=== PATIENT | female | born 2005 | race Asian ===

== ENCOUNTER 2024-09-14 10:08 | Emergency (ER) | payer OTHER, SELFPAY ==
--- NOTE | ~2024-09-14 | XR_ITS ---
EXAMINATION: XR HAND/WRIST, RIGHT CLINICAL INFORMATION: seizure, right 2/3 digit pain COMPARISON: None available. TECHNIQUE: PA, lateral, and oblique views of the right hand and wrist. FINDINGS: The bones and soft tissues are normal. No fracture. Alignment is anatomic. Joint spaces are maintained. No erosions or soft tissue calcifications. XR/XR hand wrist RT IMPRESSION: Unremarkable radiographs of the hand and wrist. Electronically signed by: Steve Delgadillo MD 09/14/2024 12:37 PM [facility]
--- NOTE | ~2024-09-14 | CT_ITS ---
EXAMINATION: CT HEAD WITHOUT CONTRAST CLINICAL INFORMATION: New onset seizure COMPARISON: None available. TECHNIQUE: Contiguous axial imaging was performed from the skull base to vertex without intravenous administration of contrast. This CT examination was performed using dose optimization techniques as appropriate, variously including the following: *Automated exposure control *Adjustment of mA and/or kV according to patient size (this includes techniques or standardized protocols for targeted exams where dose is matched to indication/reason for exam; i.e. extremities or head) *Use of iterative reconstruction technique DLP: 772.00 mGy-cm FINDINGS: The ventricles and sulci are normal in size and configuration. No acute hemorrhage, mass effect or shift is evident. Saldaña-white differentiation is maintained. In the posterior fossa, the brainstem, cerebellum and fourth ventricle image normally. The orbits and calvarium are intact. The paranasal sinuses and mastoid air cells are well pneumatized and clear. CT/CT head/brain wo IV con IMPRESSION: 1. Unremarkable noncontrast brain CT. No acute hemorrhage, mass effect or shift. Electronically signed by: Steve Delgadillo MD 09/14/2024 01:18 PM [facility]
--- NOTE | ~2024-09-14 | XR_ITS ---
EXAMINATION: XR CHEST 2 VIEW CLINICAL INFORMATION: Cough COMPARISON: None TECHNIQUE: PA and lateral views of the chest obtained. FINDINGS: The lungs are clear. There are no pleural effusions. The cardiomediastinal silhouette is normal. XR/XR chest 2V IMPRESSION: No acute cardiopulmonary disease. Electronically signed by: Steve Delgadillo MD 09/14/2024 10:56 AM [facility]
[2024-09-14 10:18] VITALS: BP 107/58; PULSE 111; RESP 20; TEMP 37.1; O2SAT 98; BMI 48.1
[2024-09-14 10:35] LABS: MANUAL DIFF FLAG NO
[2024-09-14 10:37] LABS: Basophils Absolute Auto 0.1 X10*3/uL (0.0-0.2); Basophils Percent Auto 0.6 % (0-2); Eosinophils Absolute Auto 0.5 X10*3/uL (0.0-0.4); Eosinophils Percent Auto 3.9 % (0-4); Hematocrit 39.1 % (37.0-47.0); Hemoglobin 12.9 g/dl (12.0-16.0); Imm Gran Abs Auto 0.04 X10*3/uL (0.00-0.03); Imm Gran Pct Auto 0.3 % (0.0-0.4); Lymphocytes Absolute Auto 3.1 X10*3/uL (1.2-4.9); Lymphocytes Percent Auto 24.8 % (20-40); Mean Corpuscular Hemoglobin 27.8 pg (27.0-33.0); Mean Corpuscular Volume 84.3 fL (80.0-98.0); Monocytes Absolute Auto 0.9 X10*3/uL (0.1-1.2); Monocytes Percent Auto 7.2 % (2-11); Neutrophils Absolute Auto 7.8 x10*3/uL (2.0-8.3); Neutrophils Percent Auto 63.2 % (45-73); Platelet Count 339 X10*3/uL (160-400); Red Blood Count 4.64 X10*6/uL (4.20-5.50); Red Cell Distribution Width 13.2 % (11.0-16.0); White Blood Count 12.3 X10*3/uL (4.8-10.8)
[2024-09-14 11:14] LABS: Influenza A PCR NEGATIVE (Negative); Influenza B PCR NEGATIVE (Negative); Resp Syncy Virus RNA Qual PCR NEGATIVE (Negative); SARS COV2 PCR INHOUSE NEGATIVE (Negative)
--- NOTE | 2024-09-14 11:25 | ED_ITS ---
HPI - Seizure General Chief Complaint: Seizure Stated Complaint: SEIZURE,-SEIZURE HX,FALL,POSTICTAL PER EMS Time Seen by Provider: 09/14/24 11:19 Source: patient and EMS Mode of arrival: EMS Limitations: no limitations History of Present Illness ED Provider: TYESHA GARCIA PA-C HPI Narrative: 18 year old female with no significant pmhx presents to the ED today via EMS from [facility] for evaluation of seizure-like activity. Patient reports pulling an all nighter last night in order to study for her upcoming exams. Admits to a significant amount of stress regarding school work recently. She reports taking a small nap early this morning and woke up on the floor with other students surrounding her. She reports feeling confused however recalls EMS arriving on scene. She also reports being incontinent of urine. Her roommate reported to EMS that patient exhibited seizure like activity (body shaking) however is unsure how long this lasted. Unknown head strike. Not on anticoagulation. Patient does not recall any preceding symptoms of headache, dizziness, chest pain, palpitations. At present, patient reports mild headache at present along with right hand pain, primarily to right index and middle finger. She also reports developing a sore throat since she arrived in the ED. Denies seizure history. The only medication she currently takes is an OCP. Denies etoh consumption/etoh withdrawals. Denies any illicit substance use. Related Data Previous Rx's ?Medication ?Instructions ?Recorded levetiracetam 500 mg tablet 500 mg PO BID 30 days #60 tabs 09/14/24 (Karrie) Allergies Allergy/AdvReac Type Severity Reaction Status Date / Time No Known Allergies Allergy Verified 09/14/24 10:22 Review of Systems 2 Review of Systems: Constitutional: No fever, chills, fatigue, night sweats, weight changes ENT/Mouth: No ear pain, hearing loss, nasal congestion, sinus pain, rhinorrhea, +sore throat Eyes: No eye pain, swelling, redness, vision changes, discharge Cardio: No chest pain, palpitations, [place], orthopnea, peripheral edema Pulm: No SOB, cough, sputum, wheezing, dyspnea, hemoptysis GI: No nausea, vomiting, hematemesis, abdominal pain, diarrhea, constipation, hematochezia, melena : No irregular bleeding, dysuria, frequency, urgency, hesitancy, hematuria, flank pain, urinary flow changes, urinary incontinence or retention MSK: No back pain, neck pain, joint pain, myalgias, +right hand pain Skin: No lesions, rashes Neuro: No weakness, numbness, paresthesias, LOC, dizziness, +headache Psych: No anxiety/panic, depression, SI/HI, AH/VH All other systems reviewed and are negative. [facility] Past Medical History Attestation statement: The following information was validated with the patient. Source: old records reviewed and nursing notes reviewed Medical History No known health problems Social History Social History Smoked in Last 30 Days: No Use of substances other than those prescribed or required for medical reasons: No Advance Directives: No Advance Directives Information Provided: Yes Physical Exam 2 Vital Signs: Vital Signs: Last Vital Signs Temp 98.7 F 09/14/24 10:18 Pulse 111 H 09/14/24 10:18 Resp 20 09/14/24 10:18 BP 107/58 L 09/14/24 10:18 Pulse Ox 98 09/14/24 10:18 O2 Del Method Room Air 09/14/24 10:18 BMI result Body Mass Index 48.1 Patient is tachycardic to 111, hypotensive to 107/58 General: Well appearing, in no acute distress. Skin: Warm, dry, intact. No rashes or lesions. Head: Normocephalic, atraumatic. no palpable skull fracture or hematoma. EENT: Hearing is intact b/l. Conjunctiva clear. PERRLA. EOM intact w/o entrapment. Moist mucous membranes.?+superficial laceration to right tongue, no active bleeding Neck: No midline cervical spinous tenderness or step off deformity Cardiac: Chest wall symmetric. RRR Lungs: Normal respiratory effort without accessory muscle use. CTA bilaterally. Abdomen: Soft, non-tender, non-distended. No rebound tenderness or guarding. Positive BS x4. Back: No midline spinous or paraspinal tenderness. No step off deformity. Ext: +small abrasion noted to MCP of right 2nd and 3rd digits. No active bleeding. Limited ROM w/ flexion of these digits. NV intact distally. no calf tenderness Neuro: AOx3. Normal speech. Ambulating with steady gait. Psych: Appropriate mood and affect. Responds appropriately to questions. Course Course Course Narrative: CBC showing leukocytosis to 12.3 without left shift. This is likely reactive secondary to seizure. No anemia. H&H stable. D-dimer <150 - low suspicion for PE. CTA chest not warranted at this time. chemistry without acute electrolyte abnormality requiring intervention. No NIYAH. Lactic 2 - mildly elevated secondary to seizure. No concern for sepsis. random glucose 104 - hypoglycemic episode unlikely. Total CK 114. Beta hcg <2 - unlikely. UA without infection or blood. UDS negative for all substances. She tested negative for covid, flu, rsv, and strep throat. CXR does not demonstrate pneumonia. XR right hand/ wrist does not demonstrate fracture. CT head/ brain does not demonstrate bleed or mass. > I discussed all work up results with patient. At this time patient has been observed in the ED for 4 hours without further seizure activity. She was given a loading dose of keppra IV and tolerated this well. Concern for new onset seizures - etiology unclear at this time however may be related to increased stressors/ lack of sleep. Plan to start patient on keppra 500 mg BID. Educated patient on cessation of driving for at least 6 months - she verbalizes understanding. I hand also provided her with a referral to neurologist for further work up. She plans to call them Tuesday morning. Patient has remained stable throughout ED visit today. Discussed worrisome signs and symptoms and when to return to the ED. All questions answered at this time. Patient is agreeable with disposition and stable for discharge. Her college is arranging for a ride back. Medications Administered Discontinued Medications Generic Name Dose Route Start Last Admin Trade Name Freq PRN Reason Stop Dose Admin Levetiracetam 1,000 mg in 100 mls @ 400 mls/hr 09/14/24 11:26 09/14/24 12:07 Keppra IV 09/14/24 11:40 Infused ONCE ONE Infusion Medical Decision Making Medical Decision Making [facility] Narrative: 18 year old female with no significant pmhx presents to the ED today via EMS from [facility] for evaluation of seizure-like activity. Hypotensive to 107/58, tachycardic to 111. Not hypoxic. She is nontoxic appearing and in NAD. AOX3 on my evaluation. Head is normocephalic, atraumatic. No palpable skull fracture or hematoma. Exam is nonfocal. Small laceration to right tongue without active bleeding. There is a small abrasion noted to MCP of right 2nd and 3rd digits. No active bleeding. Limited ROM w/ flexion of these digits. NV intact distally. No midline spinous tenderness or step off. Ambulating w/ steady gait. differential diagnosis includes anemia, electrolyte abnormality, dehydration, hypoglycemia, anxiety, stress, arrhythmia, seizure, seizure disorder, intracranial mass, viral syndrome, strep throat, pneumonia, urinary tract infection, finger fracture, MSK sprain/strain, pulmonary embolism. Unlikely drug induced seizure, etoh withdrawal seizure PERC 2 - d-dimer ordered to rule out PE. Plan for blood work, lactic, CPK, ekg, cxr, hand XR, UA, UDS, hcg, CT head, re- evaluation. Loading dose of keppra ordered. Will hold on ativan has patient's BP is soft. Differential Diagnosis Differential Diagnoses: The differential diagnosis associated with the presentation includes as above. Admission/Observation Consideration of admission/observation: Escalation of care including admission/observation considered Admission considered on presentation Lab Data MDM Lab Attestation statement: I reviewed the patient's lab results. as above. 09/14/24 10:31 09/14/24 11:13 Labs: Lab Results 09/14/24 09/14/24 09/14/24 Range/Units 10:27 10:31 11:13 WBC 12.3 H (4.8-10.8) X10*3/uL RBC 4.64 (4.20-5.50) X10*6/uL Hgb 12.9 (12.0-16.0) g/dl Hct 39.1 (37.0-47.0) % MCV 84.3 (80.0-98.0) fL MCH 27.8 (27.0-33.0) pg MCHC 33.0 (31.0-35.0) g/dl RDW 13.2 (11.0-16.0) % Plt Count 339 (160-400) X10*3/uL MPV 9.0 L (9.4-12.3) fL Immature Gran % (Auto) 0.3 (0.0-0.4) % Neut % (Auto) 63.2 (45-73) % Lymph % (Auto) 24.8 (20-40) % [place] % (Auto) 7.2 (2-11) % Eos % (Auto) 3.9 (0-4) % Baso % (Auto) 0.6 (0-2) % Lymph # (Auto) 3.1 (1.2-4.9) X10*3/uL [place] # (Auto) 0.9 (0.1-1.2) X10*3/uL Eos # (Auto) 0.5 H (0.0-0.4) X10*3/uL Baso # (Auto) 0.1 (0.0-0.2) X10*3/uL Abs Immat Gran (auto) 0.04 H (0.00-0.03) X10*3/uL Absolute Neuts (auto) 7.8 (2.0-8.3) x10*3/uL Absolute Nucleated RBC 0.000 (0.0-0.012) X10*3/uL Nucleated RBC % (auto) 0.0 (0.0-0.2) /100WBC D-Dimer High Sensitivty NG/ML Sodium 138 (135-145) mmol/L Potassium 3.5 (3.3-5.1) mmol/L Chloride 107 (96-108) mmol/L Carbon Dioxide 24 (22-29) mmol/L Anion Gap 11 L (12-20) BUN 9 (9-16) mg/dL Creatinine 0.61 (0.5-1.4) mg/dL Estim Creat Clear Calc 195.8 Estimated GFR > 60 Random Glucose 104 (60-115) mg/dL Lactic Acid (0.5-2.0) mmol/L Calcium 9.0 (8.4-10.2) mg/dL Total Creatine Kinase 114 (26-140) U/L Beta HCG, Quant < 2 mIU/mL Urine Color Urine Appearance Urine pH (5.0-9.0) Ur Specific [place] (1.005-1.025) Urine Protein (Neg-Trace) mg/dL Urine Glucose (UA) (Negative) mg/dL Urine Ketones (Negative) mg/dL Urine Blood (Negative) Urine Nitrite (Negative) Ur Leukocyte Esterase (Negative) Urine Opiates Screen (Not Detect) Ur Buprenorphine Scrn (Not Detect) ng/mL Ur Oxycodone Screen (Not Detect) ng/mL Urine Methadone Screen (Not Detect) ng/mL Urine Fentanyl Screen (Not Detect) Ur Barbiturates Screen (Not Detect) Ur Phencyclidine Scrn (Not Detect) Ur Amphetamines Screen (Not Detect) U Benzodiazepines Scrn (Not Detect) Urine Cocaine Screen (Not Detect) U Marijuana (THC) Screen (Not Detect) Influenza Type A (PCR) NEGATIVE (Negative) Influenza Type B (PCR) NEGATIVE (Negative) RSV RNA Qual (PCR) NEGATIVE (Negative) SARS-CoV-2 RNA (RT-PCR) NEGATIVE (Negative) S. pyogenes GrpA PHONG (Negative) 09/14/24 09/14/24 09/14/24 Range/Units 11:27 11:57 11:58 WBC (4.8-10.8) X10*3/uL RBC (4.20-5.50) X10*6/uL Hgb (12.0-16.0) g/dl Hct (37.0-47.0) % MCV (80.0-98.0) fL MCH (27.0-33.0) pg MCHC (31.0-35.0) g/dl RDW (11.0-16.0) % Plt Count (160-400) X10*3/uL MPV (9.4-12.3) fL Immature Gran % (Auto) (0.0-0.4) % Neut % (Auto) (45-73) % Lymph % (Auto) (20-40) % [place] % (Auto) (2-11) % Eos % (Auto) (0-4) % Baso % (Auto) (0-2) % Lymph # (Auto) (1.2-4.9) X10*3/uL [place] # (Auto) (0.1-1.2) X10*3/uL Eos # (Auto) (0.0-0.4) X10*3/uL Baso # (Auto) (0.0-0.2) X10*3/uL Abs Immat Gran (auto) (0.00-0.03) X10*3/uL Absolute Neuts (auto) (2.0-8.3) x10*3/uL Absolute Nucleated RBC (0.0-0.012) X10*3/uL Nucleated RBC % (auto) (0.0-0.2) /100WBC D-Dimer High Sensitivty < 150 NG/ML Sodium (135-145) mmol/L Potassium (3.3-5.1) mmol/L Chloride (96-108) mmol/L Carbon Dioxide (22-29) mmol/L Anion Gap (12-20) BUN (9-16) mg/dL Creatinine (0.5-1.4) mg/dL Estim Creat Clear Calc Estimated GFR Random Glucose (60-115) mg/dL Lactic Acid 2.0 (0.5-2.0) mmol/L Calcium (8.4-10.2) mg/dL Total Creatine Kinase (26-140) U/L Beta HCG, Quant mIU/mL Urine Color Yellow Urine Appearance Clear Urine pH 5.5 (5.0-9.0) Ur Specific [place] 1.015 (1.005-1.025) Urine Protein Trace (Neg-Trace) mg/dL Urine Glucose (UA) Negative (Negative) mg/dL Urine Ketones Negative (Negative) mg/dL Urine Blood Negative (Negative) Urine Nitrite Negative (Negative) Ur Leukocyte Esterase Negative (Negative) Urine Opiates Screen Not Detected (Not Detect) Ur Buprenorphine Scrn Not Detected (Not Detect) ng/mL Ur Oxycodone Screen Not Detected (Not Detect) ng/mL Urine Methadone Screen Not Detected (Not Detect) ng/mL Urine Fentanyl Screen Not Detected (Not Detect) Ur Barbiturates Screen Not Detected (Not Detect) Ur Phencyclidine Scrn Not Detected (Not Detect) Ur Amphetamines Screen Not Detected (Not Detect) U Benzodiazepines Scrn Not Detected (Not Detect) Urine Cocaine Screen Not Detected (Not Detect) U Marijuana (THC) Screen Not Detected (Not Detect) Influenza Type A (PCR) (Negative) Influenza Type B (PCR) (Negative) RSV RNA Qual (PCR) (Negative) SARS-CoV-2 RNA (RT-PCR) (Negative) S. pyogenes GrpA PHONG Negative (Negative) Independent Interpretation I performed an independent interpretation of an: EKG, Plain X-Ray and CT Scan Interpretation: CXR without focal consolidation or infiltrate X-ray right hand without fracture EKG showing normal sinus rhythm with a rate of 95 beats per minute, QT 364, QTC 457, no acute ischemic changes or ST elevations CT head/ brain without bleed or mass Radiology Impression Discussion of test interpretation with radiology: I have reviewed the radiologist's reading. Radiologist Impression: EXAMINATION: XR CHEST 2 VIEW CLINICAL INFORMATION: Cough COMPARISON: None TECHNIQUE: PA and lateral views of the chest obtained. FINDINGS: The lungs are clear. There are no pleural effusions. The cardiomediastinal silhouette is normal. XR/XR chest 2V IMPRESSION: No acute cardiopulmonary disease. Electronically signed by: Steve Delgadillo MD 09/14/2024 10:56 AM EST RP EXAMINATION: CT HEAD WITHOUT CONTRAST CLINICAL INFORMATION: New onset seizure COMPARISON: None available. TECHNIQUE: Contiguous axial imaging was performed from the skull base to vertex without intravenous administration of contrast. This CT examination was performed using dose optimization techniques as appropriate, variously including the following: *Automated exposure control *Adjustment of mA and/or kV according to patient size (this includes techniques or standardized protocols for targeted exams where dose is matched to indication/reason for exam; i.e. extremities or head) *Use of iterative reconstruction technique DLP: 772.00 mGy-cm FINDINGS: The ventricles and sulci are normal in size and configuration. No acute hemorrhage, mass effect or shift is evident. Saldaña-white differentiation is maintained. In the posterior fossa, the brainstem, cerebellum and fourth ventricle image normally. The orbits and calvarium are intact. The paranasal sinuses and mastoid air cells are well pneumatized and clear. CT/CT head/brain wo IV con IMPRESSION: 1. Unremarkable noncontrast brain CT. No acute hemorrhage, mass effect or shift. Electronically signed by: Steve Delgadillo MD 09/14/2024 01:18 PM EST RP EXAMINATION: XR HAND/WRIST, RIGHT CLINICAL INFORMATION: seizure, right 2/3 digit pain COMPARISON: None available. TECHNIQUE: PA, lateral, and oblique views of the right hand and wrist. FINDINGS: The bones and soft tissues are normal. No fracture. Alignment is anatomic. Joint spaces are maintained. No erosions or soft tissue calcifications. XR/XR hand wrist RT IMPRESSION: Unremarkable radiographs of the hand and wrist. Electronically signed by: Steve Delgadillo MD 09/14/2024 12:37 PM [facility] Independent Historian Clinical information obtained from an independent historian. History obtained from or confirmed by: EMS External Record Review External record reviewed: Inpatient record Prescription Management I considered prescription management with: Other (keppra) Social Determinants Patient?s care significantly limited by Social Determinants of Health including: Other Social Determinant of Health Critical Care Time Critical Care Time Critical Care Time: Yes Total Critical Care Time: 32 Attestation: Critical care time in the amount of 32 minutes has been provided to the patient in terms of direct patient care, frequent reevaluation, review and interpretation of medical data and results, and management of potentially life- threatening conditions. This is all outside of any medical procedures. Discharge Plan Discharge Clinical Impression: New onset seizure Patient Disposition: Home, Self-Care Instructions: New-Onset Seizure in Adults (ED) Additional Instructions: You were evaluated in the ED today following seizure like activity. Your workup today is consistent with new onset seizures. Your blood work is otherwise reassuring. The EKG of your heart is normal. Your urine does not show infection. The xrays of your chest and right hand are normal. The CT scan of your head does not show bleed or mass. It is unclear at this time what caused due to have a seizure this morning. As discussed, it may be related to the recent stress that you have been under regarding school. I am starting your on an anti-seizure medication (Keppra) which you will take as prescribed twice daily. You received this medication in ED today so please take your next dose tomorrow. You need to follow up with a neurologist for further work up into why you may have experienced a seizure. You have been provided with a referral. Call them on Tuesday to make an appointment. They will not call you. They will also be able to refill your prescription and monitor your medication levels. As discussed, please to not drive a vehicle or operate machinery for at least 6 months. This will prevent you from having a seizure while driving/ harming yourself and/or others. Please return with any new or worsening symptoms. In the case of an emergency call 911. Prescriptions: New levetiracetam [Keppra] 500 mg tablet 500 mg PO BID 30 Days Qty: 60 0RF Referrals: [facility] Group] - 3 days (New onset seizure - started on keppra daily) Print Language: Bulgarian
[2024-09-14 11:32] LABS: Anion Gap 11 (12-20); Blood Urea Nitrogen 9 mg/dL (9-16); Carbon Dioxide 24 mmol/L (22-29); Chloride 107 mmol/L (96-108); Creatinine Clr Calc Pharmacy 195.8; Estimated Glomerular Filt Rate > 60; Glucose Random 104 mg/dL (60-115); Potassium 3.5 mmol/L (3.3-5.1); Sodium 138 mmol/L (135-145)
[2024-09-14 11:37] LABS: Appearance Urine Clear; Color Urine Yellow; Glucose Urine UA Negative (Negative); Leukocyte Esterase Urine Negative (Negative); Nitrite Urine Negative (Negative); PH 5.5 (5.0-9.0); Specific Gravity - Urine 1.015 (1.005-1.025); Urine Blood Negative (Negative); Urine Ketones Negative (Negative); Urine Protein Trace mg/dL (Neg-Trace)
[2024-09-14] MEDS: levETIRAcetam in NaCl (iso-os) 1,000 MG/100 ML PIGGYBACK 400 MG IV (11:38)
--- NOTE | 2024-09-14 11:42 | ECG_ITS ---
Test Reason : seizure Blood Pressure : / mmHG Vent. Rate : 095 BPM Atrial Rate : 095 BPM P-R Int : 152 ms QRS Dur : 090 ms QT Int : 364 ms P-R-T Axes : 046 063 030 degrees QTc Int : 457 ms Normal sinus rhythm Normal ECG No previous ECGs available Referred By: Tasia Tang Electronically Signed By:Timbo Sanchez
[2024-09-14 11:45] LABS: Amphetamine Screen Urine Not Detected (Not Detect); Barbiturates, Urine Not Detected (Not Detect); Benzodiazepines Screen Urine Not Detected (Not Detect); Buprenorphine Scr Not Detected (Not Detect); Cannabinoid Screen Urine Not Detected (Not Detect); Cocaine Screen Urine Not Detected (Not Detect); Fentanyl, urine Not Detected (Not Detect); Methadone Screen, Urine Not Detected (Not Detect); Opiate Screen Urine Not Detected (Not Detect); Oxycodone Screen Urine Not Detected (Not Detect); Phencyclidine Screen Urine Not Detected (Not Detect)
[2024-09-14 12:00] LABS: HCG Quantitative < 2 mIU/mL
[2024-09-14 12:15] LABS: IDNOW Serial# 08D9AD1C; Strep A Nucleic Acid Negative (Negative)
[2024-09-14 12:28] LABS: D Dimer High Sensitivity < 150 NG/ML
[2024-09-14 13:52] VITALS: BP 120/68; PULSE 101; RESP 20; TEMP 37; O2SAT 97
--- NOTE | 2024-09-14 14:08 | PC.NURSE ---
This rn called [facility]. campus safety to call cab, patient out to waiting room with blanket and socks from hospital
[2024-09-14 14:10] VITALS: BP 120/68; PULSE 101; RESP 20; TEMP 37; O2SAT 97
== END 2024-09-14 14:10 | disposition home or self-care (01) ==
PROVIDERS: Physician Assistant Medical; Emergency Provider Emergency Medicine Emergency Medical Services
DX: G40.909 Epilepsy, unspecified, not intractable, without status epilepticus (principal); M79.641 Pain in right hand; R51.9 Headache, unspecified; J02.9 Acute pharyngitis, unspecified; Z03.818 Encounter for observation for suspected exposure to other biological agents ruled out
CPT/HCPCS: 0241U; 36415; 70450; 71046; 73110; 73130; 80048; 80307; 81003; 82550; 83605; 84702; 85025; 85379; 87651; 93005; 96365; 99284; J1953

== ENCOUNTER → 2024-09-14 11:42 | Outpatient (BNV) | payer OTHER, SELFPAY | PROVIDERS: Emergency Provider Emergency Medicine Emergency Medical Services; Visit Provider Internal Medicine Cardiovascular Disease | DX: R56.9 Unspecified convulsions (principal) | CPT/HCPCS: 93010 ==

== ENCOUNTER 2025-02-11 08:24 | Outpatient (AMB) | payer OTHER, SELFPAY ==
--- NOTE | 2025-02-11 08:27 | A.OFFVIS_ITS ---
Vital Signs 02/11/25 08:29 Height 5 ft 4 in BP 112/72 Blood Pressure Location Rt brachial Position Sitting Pulse 98 Pulse Source Pulse Oximeter Pulse Oximetry (%) 99 Oxygen Delivery Method Room Air Intake Visit Reasons: [id number]-HU-Xyznpir hx/Fall/Posticatal per EMS-LVM Intake Note: patient referred by ER dept. for ? seizure. patient has no PMHx. Allergies No Known Allergies Allergy (Verified 09/14/24 10:22) HPI Comments Details: 19 year old female with no significant pmhx comes for evaluation of seizure like activity.she denies seizure like activity since Sep 14 2024. On Sep 14 2024 she was brought to ED via EMS from [facility] for evaluation of seizure-like activity. Patient reports pulling an all nighter last night in order to study for her upcoming exams. Admits to a significant amount of stress regarding school work recently. She reports taking a small nap early this morning and woke up on the floor with other students surrounding her. She reports feeling confused however recalls EMS arriving on scene. She also reports being incontinent of urine. Her roommate reported to EMS that patient exhibited seizure like activity (body shaking) however is unsure how long this lasted. Unknown head strike. Not on anticoagulation. Patient does not recall any preceding symptoms of headache, dizziness, chest pain, palpitations. At present, patient reports mild headache at present along with right hand pain, primarily to right index and middle finger. She also reports developing a sore throat since she arrived in the ED. Denies seizure history. The only medication she currently takes is an OCP. Denies etoh consumption/etoh withdrawals. Denies any illicit substance use. she was given levetiracetam 500mg bid for 1 month . currently she takes only OCPs. she denies any snoring , has some fatigue . [facility] Medical History (Updated 02/11/25 @ 08:47 by Jael Mathis MD) Excessive daytime sleepiness Obesity (BMI 35.0-39.9 without comorbidity) Loss of consciousness No known health problems Family History Mother HTN (hypertension) Social History Alcohol intake: never Patient Tobacco Use Status: Never used Tobacco Use of substances other than those prescribed or required for medical reasons: No Physical Exam Vital Signs: Last Vital Signs Pulse 98 02/11/25 08:29 BP 112/72 02/11/25 08:29 Pulse Ox 99 02/11/25 08:29 Oxygen Delivery Method Room Air 02/11/25 08:29 Const General: cooperative and comfortable Nutritional Appearance: obese morbidly obese Orientation/consciousness: patient oriented x3 Eyes Pupils: Equal, round and reactive pupils present Neck Neck: Yes no meningeal signs Neuro Other: mallampatti grade 4 acanthosis nigricans General: patient oriented x3, gait normal, tone normal, moves all extremities and no meningeal signs Cranial nerves: Yes CN's II-XII intact bilaterally, Yes Facial sensation intact/muscles of mastication intact, Yes Equal, round and reactive pupils pres ent, Yes Bilaterally intact EOM present, Yes Nystagmus not present, Yes Normal facial strength present and Yes Symmetric palate elevation present Cognition (Neuro): normal cognition Gait exam (Neuro): Normal gait present Motor exam (neuro): 5/5 motor strength present throughout and Normal motor muscle tone present throughout Deep tendon reflexes (DTR's): Right triceps reflex intensity grade: 2+, Left triceps reflex intensity grade: 2+, Rt Biceps (C5, C6): 2+, Left biceps reflex intensity grade: 2+, Right brachioradialis reflex intensity grade: 2+, Left brachioradialis reflex intensity grade: 2+, Right patellar reflex intensity grade: 2+ and Left patellar reflex intensity grade: 2+ Coordination: [id number] test normal Assessment & Plan Assessment & Plan (1) Loss of consciousness: Comment: ? seizure, ? sleep deprivation. ? cardiac causes Code(s): R40.20 - Unspecified coma Category: Medical (2) Obesity (BMI 35.0-39.9 without comorbidity): Code(s): E66.9 - Obesity, unspecified Category: Medical (3) Excessive daytime sleepiness: Code(s): G47.19 - Other hypersomnia Category: Medical Plan I will evaluate her with EEG The ER notes were reviewed Home sleep test to r/o sleep apnea. Orders: Orders EEG electroencephalogram Today E66.9 - Obesity, unspecified, G47.19 - Other hypersomnia, R40.20 - Unspecified coma RT home sleep study Today E66.9 - Obesity, unspecified, G47.19 - Other hypersomnia Medications: Discontinued levetiracetam (Keppra) Discontinued Reason: Patient no longer taking 500 mg PO BID 30 days 60 tabs 0RF Coding Level of Care Code New Pt Level 4 (01737) Diagnoses Loss of consciousness R40.20 Obesity (BMI 35.0-39.9 without comorbidity) E66.9 Excessive daytime sleepiness G47.19
[2025-02-11 08:29] VITALS: BP 112/72; PULSE 98; O2SAT 99
--- OUTSIDE RECORDS SUMMARY | 2025-02-11 08:46 | XMS_ITS | Encounter Summary ---
Author Organization [facility] Address [address] [place], [place] [id number] Phone Care Team Providers Care Atomic Physics Teacher Name Role Phone Lexie Alexander MD Primary Care Provider [phone] Encounter Details Date Type Department Care Team (Late st Contact Info) Description 05/18/2017 Conversion Encounter [facility] [address] [place] [id number] Lexie Alexander MD [address] [place] [phone] Social History Tobacco Use Types Packs/Day Years Used Date Smoking Tobacco: Never Assessed Comments Unknown Sex and Gender Information Value Date Recorded Sex Assigned at Female 11/03/2021 11:28 AM EST Legal Sex Female 9:46 AM EST Gender Identity Female 11/03/2021 11:28 AM EST Sexual Orientation Choose not to disclose 2021 11:28 AM EST documented as of this encounter Plan of Treatment Not on file documented as of this encounter Visit Diagnoses Not on filedocumented in this encounter Care Teams Atomic Physics Teacher Relationship Specialty Start Date End Date Lexie Alexander MD [address] [place] [phone] PCP - General 11/30/16 documented as of this encounter
--- OUTSIDE RECORDS SUMMARY | 2025-02-11 08:46 | XMS_ITS | Clinical Summary ---
Author Organization [facility] Address [address] [place] [id number] Phone Care Team Providers Care Economics Consultant Name Role Phone Lexie Alexander MD Primary Care Provider [phone] Allergies No known active allergies Medications 1.5-30 MG-MCG tablet 06/25/2019 Active Active Problems Problem Noted Date Diagnosed Date Acute midline low back pain 04/16/2024 Assessment & Plan (04/16/2024 12:17 PM EDT): Has resolved. Recommend call if recurs/persists for ortho referral, rule out slipped disc Polycystic ovarian syndrome 08/07/2019 Assessment & Plan (04/16/2024 12:03 PM EDT): Taking OCP. Declines follow up with SPECTRAL SCIENTIST Assessment & Plan (12/09/2022 11:56 AM EST): Follow up with SPECTRAL SCIENTIST Assessment & Plan (11/03/2021 11:41 AM EST): Follow up with Dr Gutiérrez Assessment & Plan (10/20/2020 4:12 PM EST): Follow up with Dr Gutiérrez as directed Cyst of left ovary 03/15/2019 Overview (12/11/2019): Seen on u/s ordered by endocrine, referral given to complaint manager(Dr Gutiérrez). 08/28 repeat u/s, enlarged left ovary and complex paraovarian cyst. 12/27 follow up u/s showed stable left adnexal cyst vs hydrosalpinx. Bilateral follicles, ?PCOS. To f/u with Dr Gutiérrez Assessment & Plan (04/16/2024 12:00 PM EDT): Jeanine declines follow up with SPECTRAL SCIENTIST Assessment & Plan (12/09/2022 11:55 AM EST): Advised follow up with SPECTRAL SCIENTIST, continue OCP Assessment & Plan (11/03/2021 11:39 AM EST): Followed by SPECTRAL SCIENTIST, Dr Gutiérrez Assessment & Plan (10/20/2020 4:13 PM EST): Follow up with Dr Gutiérrez as directed Assessment & Plan (08/09/2019 3:47 PM EDT): Has SPECTRAL SCIENTIST appointment tomorrow Mixed hyperlipidemia 02/05/2019 Overview (02/05/2019): Followed by [facility] endocrine. 01/26 labs-High total chol(211), LDL(130) and triglyceride(231)s, low HDL(35). Low Vit D. Normal LFT and TFT's, prolactin. Free testosterone and DHEAS pending Assessment & Plan (04/16/2024 12:03 PM EDT): Declines repeat testing today. Discussed can call after 6 months of change in nutrition and exercise for fasting lipid panel order. She will think about it Assessment & Plan (12/09/2022 11:56 AM EST): Ordered fasting labs to hopefully get prior to endocrine follow up Assessment & Plan (11/03/2021 11:40 AM EST): Follow up with endocrine and nutrition Assessment & Plan (10/20/2020 4:12 PM EST): Follow up with endocrine and nutrition as directed Assessment & Plan (08/09/2019 3:48 PM EDT): Followed by endocrine. Mom didn't realize she had low Vitamin D. Wants script sent to her pharmacy Vitamin D deficiency 02/05/2019 Overview (02/05/2019): Dx'd 01/26 by endocrine. Recommended daily 2000IU Vit D Assessment & Plan (04/16/2024 12:04 PM EDT): Continue daily supplement (level last year was 14). Declines repeat testing Assessment & Plan (12/09/2022 11:56 AM EST): Will recheck with next set of labs Assessment & Plan (11/03/2021 11:41 AM EST): Continue Vit D supplement and follow up with endocrine Assessment & Plan (10/20/2020 4:11 PM EST): Continue Vit D supplement and follow up with endocrine Assessment & Plan (08/09/2019 3:48 PM EDT): Neither mom nor Jeanine knew about her Vit D deficiency. I sent a script for supplement to pharmacy Acanthosis nigricans 12/18/2015 Assessment & Plan (04/16/2024 11:58 AM EDT): Normal Hgb A1C and fasting glucose 2022 Assessment & Plan (12/09/2022 11:55 AM EST): Needs Hemoglobin A1C and fasting blood sugar rechecked Assessment & Plan (11/03/2021 11:37 AM EST): At risk for TypeIIDM, follow up with endocrine Assessment & Plan (10/20/2020 4:13 PM EST): Follow up with endocrine Myopia 09/23/2014 Assessment & Plan (04/16/2024 12:03 PM EDT): Follow up with eye doctor as directed Assessment & Plan (12/09/2022 11:56 AM EST): Follow up with eye doctor as directed Assessment & Plan (10/20/2020 4:12 PM EST): Follow up with ophtho as directed Assessment & Plan (08/09/2019 3:48 PM EDT): Follow up with ophtho as directed BMI, pediatric > 99% for age Overview (02/12/2019): 12/23-[facility] endocrine due to high fasting insulin and acanthosis nigricans. Nutrition referral, increase exercise and yearly metabolic screening, HgbA1C and glucose. 01/25-nutrition follow up, has started soccer and lost some weight. Plan to keep socially and physically active after school to avoid the eating out of boredom or sadness. 03/27 follow up note received. 06/27 follow up-referral to endocrine to rule out insulin resistance 07/27-endocrine visit obesity and insulin resistance/at risk for Type II DM, continue regular visits with nutrition. Labs normal for secondary amenorrhea, no PCOS. F/U 6 months 01/26 follow up, gaining weight, normal random glucose and HgbA1C, to have fasting labs and f/u 6 months 02/25-Labs significant for Total chol 211, LDL 130, HDL 35, Trig 231, high free testosterone(10.8) and normal DHEAS(200), normal prolactin, negative HCG. Suggests PCOS, to check u/s Assessment & Plan (04/16/2024 11:58 AM EDT): Jeanine has been making an effort to eat healthy and go to the gym regularly. Has lost 9 lbs so far Assessment & Plan (12/09/2022 11:55 AM EST): Needs follow up with endocrine. Given order for fasting labs to be done prior to appointment Assessment & Plan (11/03/2021 11:39 AM EST): Followed by endocrine and nutrition Assessment & Plan (10/20/2020 4:13 PM EST): Follow up with endocrine and nutrition as directed Assessment & Plan (08/09/2019 3:47 PM EDT): Continue follow up with endocrine Resolved Problems Problem Noted Date Diagnosed Date Resolved Date Secondary amenorrhea 07/25/2018 024 Assessment & Plan (12/09/2022 11:56 AM EST): Doing well on OCP Assessment & Plan (11/03/2021 11:41 AM EST): Diagnosed with PCOS and put on OCP Assessment & Plan (10/20/2020 4:12 PM EST): Seen by pediatric SPECTRAL SCIENTIST and diagnosed with PCOS, put on junel Immunizations Immunization Administration Dates Next Due BCG 2004 COVID-19 Pfizer, chepe-sucros e, 12+ years 10/24/2021 DTaP 10/29/2010, 6,02/19/2005,01/11,2004 HPV Vaccine 9 Valent 08/09/2019,12/08/2017 Hep A, ped/adol 03/18/2011,06/03/2010 Hep B, ped/adol 04/13/2005,2004,2004 Hib (HbOC) 01/11/2005,2004 Influenza, injectable, quadrivalent 10/28/2016,1 ,10/15/2014 Influenza, injectable, quadr ivalent, preservative free 12/09/2022,11/03/2021,09/01/2020,08/09,12/08/2017 Influenza, injectable, trivalent 10/15/2013 MMR 06/07/2011,05/04/2010 Measles 06/25/2010,06/07/2005 Meningococcal B Bexsero 01/11/2023,12/09/2022 Meningococcal Conj (Menactra) MCV4P 10/20/2020,0 10/28/2016,05/04/2010 OPV 10/05/2008, 5,01/11/2005,12/04 Tdap 10/28/2016 Tetanus 10/15/2013 Varicella 02/14/2014,05/03/2011 Family History Medical History Relation Name Comments Diabetes Other Breast cancer Paternal Grandmother Liver cancer Paternal Grandmother Relation Name Status Comments Father Alive Mother Alive Other Paternal Grandmother breast cancer in 40's, liver cancer in 60's and Social History Tobacco Use Types Packs/Day Years Used Date Smoking Tobacco: Never Assessed Hunger/Food Answer Date Recorded In the last 12 months, did y ou or your family ever eat less than you felt you should because there wasn't enough money for food? No 04/16/2024 Stable Housing Answer Date Recorded Are you worried that in the next 2 months you may not have stable housing? No 04/16/2024 Transportation Concerns Answer Date Rec orded In the last 12 months, have you or your family ever had to go without healthcare because you didn't have a way to get there? No 04/16/2024 Hazards in Home Answer Date Recorded Think about the place you li ve. Do you have problems with any of the following? Pests (mice or roaches), mold, no/not working smoke detectors, water leaks, no window guards. No 2023 Financing Utilities Answer Date Recorde d In the last 12 months, has t he electric, gas, oil, or water company threatened to shut off your services in your home? No 04/16/2024 Safety at Home Answer Date Recorded Are you or your family worried about feeling saf e in your home? No 04/16/2024 Outside Support Answer Date Recorded Do you feel that you need mo re support from other people or programs to help you care for yourself or your family? No 04/16/2024 Understanding Health Concerns Answer Da te Recorded Do you need help understandi ng your or your child's healthcare needs (diagnosis, medications, plan, etc.)? No 04/16/2024 Financing Health Concerns Answer Date R ecorded In the last 12 months, was t here a time when your child needed to see a doctor or get medications or supplies but could not because of cost? No 04/16/2024 Missing School or Work Answer Date Laith rded Did you or your child miss s chool or work because of a health problem that could have been avoided? No 04/16/2024 Child Education Answer Date Recorded Do you have concerns about y our/your child's learning or behavior in school, preschool, or daycare? No 04/16/2024 Comments Unknown Sex and Gender Information Value Date Recorded Sex Assigned at Female 11/03/2021 11:28 AM EST Legal Sex Female 9:46 AM EST Gender Identity Female 11/03/2021 11:28 AM EST Sexual Orientation Choose not to disclose 2021 11:28 AM EST Last Filed Vital Signs Vital Sign Reading Time Taken Comments Blood Pressure 115/70 04/16/2024 11:30 AM EDT Pulse 103 04/16/2024 11:30 AM EDT Temperature 37.5 ??C (99.5 ??F) 05/21/2024 1:39 PM ED T Respiratory Rate 22 11/03/2021 11:15 AM EST Oxygen Saturation 97% 04/16/2024 11:30 AM EDT Inhaled Oxygen Concentration - - Weight 125 kg (275 lb) 05/21/2024 1:39 PM EDT Height 161.5 cm (5' 3.58 ) 04/16/2024 11:30 AM E DT Body Mass Index 47.82 04/16/2024 11:30 AM EDT Plan of Treatment Health Maintenance Due Date Last Done Comments Influenza Vaccines (#1) 2024 12/10/19, 11/03/2021, 09/01/2020, Additional history exists COVID-19 Vaccine ( season) 2024 10/24/2021, 02/09/2021, 01/18/2021 Chlamydia and Gonorrhea Screening 10/10/2024 04/16/2024 DTaP,Tdap,and Td Vaccines (7 - Td or Tdap) 10/28/2026 10/28/2016, 10/29/2010, 04/06/2006, Additional history exists HIB Vaccines Aged Out 01/11/2005, 2004 No lo nger eligible based on patient's age to complete this topic Hepatitis B Vaccines Completed 04/13/2005, 2004, 2004 IPV Vaccines Completed 10/05/2008, 02/07, 01/11/2005, Additional history exists Hepatitis A Vaccines Completed 03/18/2011, 06/03/20 MMR Vaccines Completed 06/07/2011, 05/04/2010 Varicella Vaccines Completed 02/14/2014, 05/03/2011 HPV Vaccines Completed 08/09/2019, 12/08/2017 Meningococcal Vaccine Completed 10/20/2020 , 10/28/2016, 05/04/2010 Men B Vaccine Completed 01/11/2023, 12/09/2022 Pneumococcal Vaccine Aged Out No long er eligible based on patient's age to complete this topic Procedures * Due to [facility] law, this organization might not be sharing sensitive test results. Procedure Name Priority Date/Time Associated Diagnosis Comments CHLAMYDIA AND GONORRHEA, AMPLIFIED Routine 04/16/2024 12:00 PM EDT Encounter for screening examination for sexually transmitted disease from Last 3 Months or Most Recently Relevant to Health Maintenance Results * Due to [employer] law, this organization might not be sharing sensitive test results. * Chlamydia and Gonorrhoea, Amplified (Urine) (04/16/2024 12:00 PM EDT) Chlamydia trachomatis RNA, TMA NOT DETECTED NOT DETECTED [employer] Neisseria gonorrhoeae, ASHLEY NOT DETECTED NOT DETECTED [employer] Comment [employer] Comment: The analytical performance characteristics of this assay, when used to test SurePath(TM) specimens have been determined by [facility]. The modifications have not been cleared or approved by the FDA. This assay has been validated pursuant to the CLIA regulations and is used for clinical purposes. For additional information, please refer to https://education.[employer]/faq/FWP628 (This link is being provided for information/ educational purposes only.) Urine (Urine, Random (not clean void)) 04/16/2024 12:00 PM EDT 04/17/2024 3:54 AM EDT Narrative Resulting Agency Comment Performing Organization Information: ?Site ID: [id number] ?Name: [facility] ?Address: [address] [place] [id number] ?Director: Alma Suero us Lexie Alexander MD LAB MICROBIOLOGY - GENERAL RUDDY ALEMAN Final Result [facility] from Last 3 Months or Most Recently Relevant to Health Maintenance Insurance BCBS BLUE CARD OUT OF STATE AETNA Care Teams Economics Consultant Relationship Specialty Start Date End Date Lexie Alexander MD [address] [place] [id number] PCP - General 11/30/16
--- OUTSIDE RECORDS SUMMARY | 2025-02-11 08:46 | XMS_ITS | Clinical Summary ---
Author Organization [facility] Address [address] [facility] [place] [address] Care Team Providers Care Multiplex Operator Name Role Phone No, Pcp SCREW DRIVER OPERATOR Primary Care Provider Unavailabl e Social History Tobacco Use Types Packs/Day Years Used Date Smoking Tobacco: Never Assessed Comments Unknown Sex and Gender Information Value Date Recorded Sex Assigned at Not on file Legal Sex Female 1:25 PM EST Gender Identity Not on file Sexual Orientation Not on file Plan of Treatment Health Maintenance Due Date Last Done Comments Depression: Screening Annual ly using PHQ-2/9 in Adults 18 yrs or above (or HM Modifier)([facility]) 2004 Hepatitis C Virus Infection in Adolescents and Adults: Screening (or Modifier) ([facility]) 2022 SDOH Screening Reminder: Kasie last for all adults ([facility]) 2022 Tobacco Smoking Cessation: i n Adults excluding Women: Behavioral and Pharmacotherapy Interventions ([facility]) 2022 DTaP/Tdap/Td Vaccines ([facility]) (1 - Tdap) 2023 COVID-19 Vaccine Screening: Initial Series and Booster Status ([facility]) ( - 2023- season) 2024 Lipid Screening: Once for Wo men aged 20 to 45 yrs ([facility]) 2024 Flu Vaccination: Yearly for ages 18mos through 64 years (or Modifier)([facility]) 05/10/2025 Zoster/Shingles Vaccine Seri es Screening: Adults aged 18+ yrs (or HM Modifiers)([facility]) (1 of 2) 2054 Pneumococcal Vaccination Scr eening: Pts 0-19 & 19-49 yrs of age ([facility]) Aged Out No longer eligible based on patient's age to complete this topic Medical Devices Not on file Care Teams Multiplex Operator Relationship Specialty Start Date End Date No, Pcp, SCREW DRIVER OPERATOR N/A Do not use PCP - General Family Medicine 11/22/20
== END 2025-02-11 08:51 | disposition home or self-care (01) ==
LOC: HO.HSMS 08:27
PROVIDERS: Visit Provider Psychiatry & Neurology Neurology
DX: R40.20 Unspecified coma (principal); E66.9 Obesity, unspecified; G47.19 Other hypersomnia
CPT/HCPCS: 99204